=== PATIENT | female | born 1995 | race Two or more races ===

== ENCOUNTER 2024-09-08 11:04 | Emergency (ER) | payer OTHER ==
[~2024-09-08] VITALS: Ht 160 cm; Wt 51.7 kg
[2024-09-08 11:09] VITALS: BP 123/63; TEMP 98.6; O2SAT 99
[2024-09-08] MEDS: AZITHROMYCIN 250 MG TABLET PO ONE (12:39)
== END 2024-09-08 12:00 | disposition home or self-care (01) ==
LOC: ER 11:30
DX: Z20.811 Contact with and (suspected) exposure to meningococcus (principal)